=== PATIENT | female | born 1975 | race African-American/Black ===

== ENCOUNTER 2023-02-06 18:27 | Emergency (ER) | payer OTHER ==
[2023-02-06] MEDS ORDERED: Metoclopramide HCl 10 MG (2 mL) VIAL ONE (19:01)
[2023-02-06] MEDS ORDERED: Oseltamivir 75 MG CAP ONE (19:02)
[2023-02-06 19:41] LABS: SARS-CoV-2 NAA Rapid Test Not Detected (NotDetected)
== END 2023-02-06 20:00 | disposition home or self-care (01) ==
LOC: BURERS 18:27
DX: J10.1 Influenza due to other identified influenza virus with other respiratory manifestations (principal); I10 Essential (primary) hypertension
CPT/HCPCS: 96372; 99283; J2765